=== PATIENT | female | born 1965 | race Caucasian/White ===

== ENCOUNTER 2023-05-04 15:32 | Emergency (ER) | payer MEDICARE, OTHER ==
[~2023-05-04] VITALS: Ht 167.6 cm; Wt 83.0 kg
[2023-05-04 15:40] VITALS: TEMP 98
[2023-05-04] MEDS ORDERED: BACI/NEOM/POLY B OINT PKT 1 UDPKT PACKET ONE ×2 (15:58→16:10)
[2023-05-04] MEDS ORDERED: TDAP [DIPH/PERTUSSIS/TET] 0.5 ML VIAL IM ONE ×3 (15:59→16:10)
[2023-05-04] MEDS ORDERED: BACI/NEOM/POLY B OINT PKT 1 UDPKT PACKET TP ONE (16:00)
[2023-05-04] MEDS ORDERED: LIDOCAINE HCL/PF 1% 30 ML SDV ONE (16:13)
[2023-05-04] MEDS ORDERED: IBUP-1955 PO (17:24)
[2023-05-04 18:25] VITALS: BP 136/79; O2SAT 98
== END 2023-05-04 18:25 | disposition home or self-care (01) ==
LOC: ER 15:56
DX: S01.81XA Laceration without foreign body of other part of head, initial encounter (principal); E78.5 Hyperlipidemia, unspecified; W22.8XXA Striking against or struck by other objects, initial encounter; Y93.89 Activity, other specified; Y92.89 Other specified places as the place of occurrence of the external cause; Y99.8 Other external cause status
CPT/HCPCS: 12013; 70450; 90471; 90715; 99285; A6403; J3490

== ENCOUNTER 2025-04-04 14:11 | Emergency (ER) ==
[~2025-04-04] VITALS: Ht 162.6 cm; Wt 65.8 kg
[~2025-04-04 14:11] MED LIST: IBUP-1955 PO
[2025-04-04 14:32] VITALS: TEMP 97.9
[2025-04-04 14:40] VITALS: BP 119/69; O2SAT 98
== END 2025-04-04 16:19 | disposition home or self-care (01) ==
LOC: ER 14:17
DX: S09.8XXA Other specified injuries of head, initial encounter (principal); D68.9 Coagulation defect, unspecified; E78.5 Hyperlipidemia, unspecified; I51.9 Heart disease, unspecified; W20.8XXA Other cause of strike by thrown, projected or falling object, initial encounter; Y93.89 Activity, other specified; Y92.89 Other specified places as the place of occurrence of the external cause; Y99.8 Other external cause status
CPT/HCPCS: 70450-TC